=== PATIENT | male | born 1975 | race Caucasian/White ===

== ENCOUNTER 2019-11-29 17:22 | Emergency (ER) | payer OTHER ==
[~2019-11-29] VITALS: Ht 185.4 cm; Wt 85.5 kg
[2019-11-29 18:19] VITALS: BP 115/75
== END 2019-11-29 18:24 | disposition home or self-care (01) ==
LOC: ED 17:22
DX: S51.812A Laceration without foreign body of left forearm, initial encounter (principal); W26.0XXA Contact with knife, initial encounter; Y92.009 Unspecified place in unspecified non-institutional (private) residence as the place of occurrence of the external cause

== ENCOUNTER 2021-05-22 12:57 | Emergency (ER) | payer OTHER ==
[~2021-05-22] VITALS: Ht 185.4 cm; Wt 89.1 kg
[2021-05-22] MEDS ORDERED: DESYREL50 MG PO (13:12)
[2021-05-22 14:47] VITALS: BP 123/74
== END 2021-05-22 14:55 | disposition home or self-care (01) ==
LOC: ED 12:57
DX: S61.215A Laceration without foreign body of left ring finger without damage to nail, initial encounter (principal); S51.812A Laceration without foreign body of left forearm, initial encounter; W29.3XXA Contact with powered garden and outdoor hand tools and machinery, initial encounter
CPT/HCPCS: J1885